=== PATIENT | female | born 1965 | race Two or more races ===

== ENCOUNTER 2017-09-13 07:16 | Day surgery (SDC) | payer MEDICAID ==
[2017-09-13] MEDS ORDERED: Lactated Ringer's 500 ML IV ONE (08:12)
[2017-09-13] MEDS ORDERED: Propofol 10 mg/ml Inj (20 ML) ONE (09:06)
[2017-09-13 09:39] VITALS: O2SAT 99
[2017-09-13 09:59] VITALS: BP 95/60; PULSE 79; RESP 25; TEMP 97
== END 2017-09-13 12:00 | disposition home or self-care (01) ==
LOC: H.ENDO 07:16
PROVIDERS: ATTEND Internal Medicine Gastroenterology
DX: Z12.11 Encounter for screening for malignant neoplasm of colon (principal); K64.8 Other hemorrhoids
CPT/HCPCS: 45378; J2704; J7120

== ENCOUNTER 2017-10-18 07:38 | Day surgery (SDC) | payer MEDICAID ==
[2017-10-18] MEDS ORDERED: Lactated Ringer's 1,000 ML IV ONE (08:08)
[2017-10-18] MEDS ORDERED: Propofol 10 mg/ml Inj (20 ML) ONE (09:01)
[2017-10-18] MEDS ORDERED: Lidocaine 2% MPF (5 ml) Inj ONE (09:01)
[2017-10-18 09:15] VITALS: TEMP 97.5
[2017-10-18 09:31] VITALS: BP 110/68; PULSE 80; RESP 21; O2SAT 100
== END 2017-10-18 09:38 | disposition home or self-care (01) ==
LOC: H.ENDO 07:38
PROVIDERS: ATTEND Internal Medicine Gastroenterology
DX: K30 Functional dyspepsia (principal); K44.9 Diaphragmatic hernia without obstruction or gangrene; K29.50 Unspecified chronic gastritis without bleeding; B96.81 Helicobacter pylori [H. pylori] as the cause of diseases classified elsewhere
CPT/HCPCS: 43239; 88305; J2704; J7120